=== PATIENT | female | born 1970 | race Two or more races ===

== ENCOUNTER 2021-11-08 10:37 | Outpatient (REF) | payer OTHER, SELFPAY ==
--- NOTE | ~2021-11-08 | XR_ITS ---
EXAMINATION: XR HAND, BILATERAL. XR LUMBAR SPINE. XR KNEE, BILATERAL. CLINICAL INFORMATION: Bilateral hand and knee pain. Low back pain. COMPARISON: None TECHNIQUE: 3 views of each hand. 3 views of the lumbar spine. 3 views of each knee. FINDINGS: Right hand: Mild to moderate osteoarthritis of the interphalangeal joints, most prominent at the 3rd DIP joint. No fracture. No periarticular osteopenia or erosions. Small degenerative calcification at the radial aspect of the 4th DIP joint. Carpal joint spaces are preserved. Left hand: Mild osteoarthritis of the interphalangeal joints, most prominent at the 2nd DIP joint. No fracture. No periarticular osteopenia, erosions, or suspicious soft tissue calcifications. Lumbar spine: Mild rotatory dextroconvex scoliosis. Normal lumbar lordosis. There is advanced facet arthrosis at L5-S1 with slight anterolisthesis. Mild multilevel degenerative disc disease with small endplate osteophytes. No acute abnormality. Right knee: No joint space narrowing. No fracture. No joint effusion. Left knee: No joint space narrowing. No fracture. No joint effusion. XR/XR lumbar spine 2-3V IMPRESSION: Mild to moderate degenerative changes in the distal distribution of the interphalangeal joints of both hands, most prominent involving the 3rd DIP joint of the right hand. No acute abnormalities or evidence of an inflammatory arthropathy. Mild multilevel degenerative disc disease of the lumbar spine with slight rotatory dextroconvex scoliosis. There is advanced facet arthrosis at L5-S1 with slight anterolisthesis. Normal knees.
--- NOTE | ~2021-11-08 | XR_ITS ---
EXAMINATION: XR HAND, BILATERAL. XR LUMBAR SPINE. XR KNEE, BILATERAL. CLINICAL INFORMATION: Bilateral hand and knee pain. Low back pain. COMPARISON: None TECHNIQUE: 3 views of each hand. 3 views of the lumbar spine. 3 views of each knee. FINDINGS: Right hand: Mild to moderate osteoarthritis of the interphalangeal joints, most prominent at the 3rd DIP joint. No fracture. No periarticular osteopenia or erosions. Small degenerative calcification at the radial aspect of the 4th DIP joint. Carpal joint spaces are preserved. Left hand: Mild osteoarthritis of the interphalangeal joints, most prominent at the 2nd DIP joint. No fracture. No periarticular osteopenia, erosions, or suspicious soft tissue calcifications. Lumbar spine: Mild rotatory dextroconvex scoliosis. Normal lumbar lordosis. There is advanced facet arthrosis at L5-S1 with slight anterolisthesis. Mild multilevel degenerative disc disease with small endplate osteophytes. No acute abnormality. Right knee: No joint space narrowing. No fracture. No joint effusion. Left knee: No joint space narrowing. No fracture. No joint effusion. XR/XR hand RT min 3V IMPRESSION: Mild to moderate degenerative changes in the distal distribution of the interphalangeal joints of both hands, most prominent involving the 3rd DIP joint of the right hand. No acute abnormalities or evidence of an inflammatory arthropathy. Mild multilevel degenerative disc disease of the lumbar spine with slight rotatory dextroconvex scoliosis. There is advanced facet arthrosis at L5-S1 with slight anterolisthesis. Normal knees.
--- NOTE | ~2021-11-08 | XR_ITS ---
EXAMINATION: XR HAND, BILATERAL. XR LUMBAR SPINE. XR KNEE, BILATERAL. CLINICAL INFORMATION: Bilateral hand and knee pain. Low back pain. COMPARISON: None TECHNIQUE: 3 views of each hand. 3 views of the lumbar spine. 3 views of each knee. FINDINGS: Right hand: Mild to moderate osteoarthritis of the interphalangeal joints, most prominent at the 3rd DIP joint. No fracture. No periarticular osteopenia or erosions. Small degenerative calcification at the radial aspect of the 4th DIP joint. Carpal joint spaces are preserved. Left hand: Mild osteoarthritis of the interphalangeal joints, most prominent at the 2nd DIP joint. No fracture. No periarticular osteopenia, erosions, or suspicious soft tissue calcifications. Lumbar spine: Mild rotatory dextroconvex scoliosis. Normal lumbar lordosis. There is advanced facet arthrosis at L5-S1 with slight anterolisthesis. Mild multilevel degenerative disc disease with small endplate osteophytes. No acute abnormality. Right knee: No joint space narrowing. No fracture. No joint effusion. Left knee: No joint space narrowing. No fracture. No joint effusion. XR/XR knee RT 3V IMPRESSION: Mild to moderate degenerative changes in the distal distribution of the interphalangeal joints of both hands, most prominent involving the 3rd DIP joint of the right hand. No acute abnormalities or evidence of an inflammatory arthropathy. Mild multilevel degenerative disc disease of the lumbar spine with slight rotatory dextroconvex scoliosis. There is advanced facet arthrosis at L5-S1 with slight anterolisthesis. Normal knees.
--- NOTE | ~2021-11-08 | XR_ITS ---
EXAMINATION: XR HAND, BILATERAL. XR LUMBAR SPINE. XR KNEE, BILATERAL. CLINICAL INFORMATION: Bilateral hand and knee pain. Low back pain. COMPARISON: None TECHNIQUE: 3 views of each hand. 3 views of the lumbar spine. 3 views of each knee. FINDINGS: Right hand: Mild to moderate osteoarthritis of the interphalangeal joints, most prominent at the 3rd DIP joint. No fracture. No periarticular osteopenia or erosions. Small degenerative calcification at the radial aspect of the 4th DIP joint. Carpal joint spaces are preserved. Left hand: Mild osteoarthritis of the interphalangeal joints, most prominent at the 2nd DIP joint. No fracture. No periarticular osteopenia, erosions, or suspicious soft tissue calcifications. Lumbar spine: Mild rotatory dextroconvex scoliosis. Normal lumbar lordosis. There is advanced facet arthrosis at L5-S1 with slight anterolisthesis. Mild multilevel degenerative disc disease with small endplate osteophytes. No acute abnormality. Right knee: No joint space narrowing. No fracture. No joint effusion. Left knee: No joint space narrowing. No fracture. No joint effusion. XR/XR hand LT min 3V IMPRESSION: Mild to moderate degenerative changes in the distal distribution of the interphalangeal joints of both hands, most prominent involving the 3rd DIP joint of the right hand. No acute abnormalities or evidence of an inflammatory arthropathy. Mild multilevel degenerative disc disease of the lumbar spine with slight rotatory dextroconvex scoliosis. There is advanced facet arthrosis at L5-S1 with slight anterolisthesis. Normal knees.
--- NOTE | ~2021-11-08 | XR_ITS ---
EXAMINATION: XR HAND, BILATERAL. XR LUMBAR SPINE. XR KNEE, BILATERAL. CLINICAL INFORMATION: Bilateral hand and knee pain. Low back pain. COMPARISON: None TECHNIQUE: 3 views of each hand. 3 views of the lumbar spine. 3 views of each knee. FINDINGS: Right hand: Mild to moderate osteoarthritis of the interphalangeal joints, most prominent at the 3rd DIP joint. No fracture. No periarticular osteopenia or erosions. Small degenerative calcification at the radial aspect of the 4th DIP joint. Carpal joint spaces are preserved. Left hand: Mild osteoarthritis of the interphalangeal joints, most prominent at the 2nd DIP joint. No fracture. No periarticular osteopenia, erosions, or suspicious soft tissue calcifications. Lumbar spine: Mild rotatory dextroconvex scoliosis. Normal lumbar lordosis. There is advanced facet arthrosis at L5-S1 with slight anterolisthesis. Mild multilevel degenerative disc disease with small endplate osteophytes. No acute abnormality. Right knee: No joint space narrowing. No fracture. No joint effusion. Left knee: No joint space narrowing. No fracture. No joint effusion. XR/XR knee LT 3V IMPRESSION: Mild to moderate degenerative changes in the distal distribution of the interphalangeal joints of both hands, most prominent involving the 3rd DIP joint of the right hand. No acute abnormalities or evidence of an inflammatory arthropathy. Mild multilevel degenerative disc disease of the lumbar spine with slight rotatory dextroconvex scoliosis. There is advanced facet arthrosis at L5-S1 with slight anterolisthesis. Normal knees.
[2021-11-08 10:53] LABS: MANUAL DIFF FLAG NO
[2021-11-08 12:02] LABS: Basophils Percent Auto 0.8 % (0-2); Eosinophils Absolute Auto 0.1 X10*3/uL (0.0-0.4); Eosinophils Percent Auto 1.5 % (0-4); Hematocrit 36.2 % (37.0-47.0); Hemoglobin 11.5 g/dl (12.0-16.0); Imm Gran Abs Auto 0.01 X10*3/uL (0.00-0.03); Imm Gran Pct Auto 0.2 % (0.0-0.4); Lymphocytes Absolute Auto 1.9 X10*3/uL (1.2-4.9); Lymphocytes Percent Auto 36.2 % (20-40); Mean Corpuscular HGB Conc 31.8 g/dl (31.0-35.0); Mean Corpuscular Hemoglobin 24.1 pg (27.0-33.0); Mean Corpuscular Volume 75.7 fL (80.0-98.0); Mean Platelet Volume 9.6 fL (9.4-12.3); Monocytes Absolute Auto 0.4 X10*3/uL (0.1-1.2); Monocytes Percent Auto 8.3 % (2-11); Neutrophils Absolute Auto 2.8 x10*3/uL (2.0-8.3); Platelet Count 448 X10*3/uL (160-400); Red Blood Count 4.78 X10*6/uL (4.20-5.50); Red Cell Distribution Width 14.4 % (11.0-16.0); White Blood Count 5.3 X10*3/uL (4.8-10.8)
[2021-11-08 12:42] LABS: Erythrocyte Sedimentation Rate 14 MM/HR (0-20)
[2021-11-08 12:53] LABS: Thyroid Stimulating Hormone 2.28 uIU/mL (0.32-4.0)
[2021-11-08 13:14] LABS: Alanine Aminotransferase 23 U/L (0-31); Albumin Level 4.7 g/dL (3.5-5.0); Alkaline Phosphatase 101 U/L (39-117); Anion Gap 15 (12-20); Aspartate Amino Transferase 24 U/L (5-31); Bilirubin Total 0.9 mg/dL (0.0-1.0); Blood Urea Nitrogen 11 mg/dL (9-16); C Reactive Protein 0.07 mg/dL (< or = 0.50); Calcium 9.5 mg/dL (8.4-10.2); Carbon Dioxide 26 mmol/L (22-29); Chloride 104 mmol/L (96-108); Estimated Glomerular Filt Rate > 60; Glucose Random 95 mg/dL (60-115); Potassium 4.6 mmol/L (3.3-5.1); Rheumatoid Factor < 15.0 IU/mL (<15.0); Sodium 140 mmol/L (135-145); Total Protein 7.7 g/dL (6.5-8.0)
[2021-11-08 14:54] LABS: Creatinine Urine 31.83 mg/dL; Total Protein Urine Random < 7 mg/dL (<12)
[2021-11-13 15:02] LABS: Anti Nuclear Antibody Screen NEGATIVE (NEGATIVE)
== END 2021-11-08 10:38 | disposition home or self-care (01) ==
LOC: HO.LAB 10:37
PROVIDERS: PCP Internal Medicine; Visit Provider Internal Medicine Rheumatology
DX: M79.642 Pain in left hand (principal); M79.641 Pain in right hand; M25.561 Pain in right knee; M25.562 Pain in left knee; M54.50 Low back pain, unspecified; M79.7 Fibromyalgia; M47.812 Spondylosis without myelopathy or radiculopathy, cervical region
CPT/HCPCS: 36415; 72100; 73130; 73562; 80053; 84156; 84443; 85025; 85652; 86038; 86039; 86140; 86431; 99202

== ENCOUNTER → 2021-12-18 10:51 | Outpatient (BNVA) | payer OTHER, SELFPAY | PROVIDERS: PCP Internal Medicine; Visit Provider Internal Medicine Rheumatology | DX: M47.816 Spondylosis without myelopathy or radiculopathy, lumbar region (principal); M19.041 Primary osteoarthritis, right hand; M19.042 Primary osteoarthritis, left hand | CPT/HCPCS: 99212 ==

== ENCOUNTER 2022-02-23 07:34 | Outpatient (REF) | payer OTHER, SELFPAY ==
[2022-02-23 07:51] LABS: MANUAL DIFF FLAG NO
[2022-02-23 08:10] LABS: Basophils Absolute Auto 0.1 X10*3/uL (0.0-0.2); Basophils Percent Auto 1.1 % (0-2); Eosinophils Absolute Auto 0.1 X10*3/uL (0.0-0.4); Eosinophils Percent Auto 2.3 % (0-4); Hemoglobin 11.1 g/dl (12.0-16.0); Imm Gran Abs Auto 0.01 X10*3/uL (0.00-0.03); Imm Gran Pct Auto 0.2 % (0.0-0.4); Lymphocytes Absolute Auto 1.9 X10*3/uL (1.2-4.9); Lymphocytes Percent Auto 40.8 % (20-40); Mean Corpuscular HGB Conc 30.8 g/dl (31.0-35.0); Mean Corpuscular Hemoglobin 23.8 pg (27.0-33.0); Mean Corpuscular Volume 77.3 fL (80.0-98.0); Mean Platelet Volume 9.3 fL (9.4-12.3); Monocytes Absolute Auto 0.4 X10*3/uL (0.1-1.2); Monocytes Percent Auto 8.3 % (2-11); Neutrophils Absolute Auto 2.2 x10*3/uL (2.0-8.3); Neutrophils Percent Auto 47.3 % (45-73); Platelet Count 413 X10*3/uL (160-400); Red Blood Count 4.66 X10*6/uL (4.20-5.50); Red Cell Distribution Width 13.7 % (11.0-16.0); White Blood Count 4.7 X10*3/uL (4.8-10.8)
[2022-02-23 08:49] LABS: Alanine Aminotransferase 26 U/L (0-31); Albumin Level 4.5 g/dL (3.5-5.0); Alkaline Phosphatase 95 U/L (39-117); Anion Gap 15 (12-20); Aspartate Amino Transferase 22 U/L (5-31); Bilirubin Total 0.7 mg/dL (0.0-1.0); Blood Urea Nitrogen 18 mg/dL (9-16); Calcium 9.8 mg/dL (8.4-10.2); Carbon Dioxide 26 mmol/L (22-29); Chloride 104 mmol/L (96-108); Cholesterol 244 mg/dL; Estimated Glomerular Filt Rate > 60; Glucose Fasting 94 mg/dL (60-99); HDL Cholesterol 71 mg/dL; Iron 56 mcg/dL (30-160); LDL Cholesterol Calculated 157 mg/dl; Percent Iron Saturation 15 % (15-50); Potassium 4.3 mmol/L (3.3-5.1); Sodium 141 mmol/L (135-145); Total Iron Binding Capacity 384 mcg/dL (228-428); Total Protein 7.2 g/dL (6.5-8.0); Triglycerides 83 mg/dL; Unsaturated Iron Binding 328 ug/dL
[2022-02-23 08:53] LABS: Erythrocyte Sedimentation Rate 5 MM/HR (0-20)
[2022-02-23 09:07] LABS: HBS Num1 2.07 mIU/mL (0-7.99); HBc Num1 0.08 S/CO (0.00-0.79); Hepatitis B Core Antibody Nonreactive (Nonreactive); Hepatitis B Surface Antigen Negative (Negative); ~Hepatitis B Surface Antibody NONREACTIVE (Nonreactive)
[2022-02-23 09:11] LABS: Thyroid Stimulating Hormone 3.21 uIU/mL (0.32-4.0); Vitamin D 25-OH Total 29.8 ng/mL (>30)
[2022-02-23 09:13] LABS: Folate 13.7 ng/mL (> or = 4.0); Vitamin B12 339 pg/mL (200-900)
[2022-02-26 06:02] LABS: TS Negative Control Passed; TS Panel A 0; TS Panel B 0; TS Positive Control Passed; TSpotTB Negative (Negative)
[2022-02-26 13:21] LABS: Anti Nuclear Antibody Screen NEGATIVE (NEGATIVE)
[2022-02-26 19:57] LABS: Thyroglobulin Antibodies <1 IU/mL (< or = 1); Thyroid Peroxidase Antibodies <1 IU/mL (<9)
[2022-02-26 22:13] LABS: Rubeola IgG (Measles) >300.00 AU/mL
[2022-02-26 22:51] LABS: CRP High Sensitivity 0.4 mg/L
[2022-02-27 13:37] LABS: Anti DNA DS Antibody 7 IU/mL
[2022-02-27 14:07] LABS: Cyclic Citrullinated Peptide <16 UNITS
[2022-02-28 21:51] LABS: Intrinsic Factor Antibodies Negative (Negative)
[2022-03-01 23:17] LABS: Parietal Cell Antibody <=20.0 Unit (<=20.0)
== END 2022-02-23 07:35 | disposition home or self-care (01) ==
LOC: HO.LAB 07:34
PROVIDERS: PCP Internal Medicine; Visit Provider Internal Medicine
DX: Z01.84 Encounter for antibody response examination (principal); M06.9 Rheumatoid arthritis, unspecified; E03.9 Hypothyroidism, unspecified; E78.5 Hyperlipidemia, unspecified; E53.8 Deficiency of other specified B group vitamins; E55.9 Vitamin D deficiency, unspecified; D64.9 Anemia, unspecified; R73.02 Impaired glucose tolerance (oral); Z11.1 Encounter for screening for respiratory tuberculosis
CPT/HCPCS: 36415; 80053; 80061; 82306; 82607; 82746; 83516; 83540; 84443; 85025; 85652; 86038; 86039; 86141; 86200; 86225; 86340; 86376; 86481; 86704; 86706; 86735; 86762; 86765; 86787; 86800; 87340

== ENCOUNTER 2022-03-29 08:20 | Outpatient (REF) | payer OTHER, SELFPAY ==
--- NOTE | ~2022-03-29 | MM_ITS ---
EXAMINATION: MM SCREENING DIGITAL BREAST TOMOSYNTHESIS, BILATERAL CLINICAL INFORMATION: Screening. Asymptomatic. Status post bilateral reduction mammoplasty. The lifetime risk of breast cancer based on the Tyrer-Cuzick Model is 6.2%. COMPARISON: Mammography: None TECHNIQUE: Digital breast tomosynthesis is performed in both the craniocaudal and mediolateral oblique views along with computer-aided detection (CAD). Synthesized 2D images are generated from the tomosynthesis. FINDINGS: There are scattered areas of fibroglandular density (ACR BI-RADS breast composition Category b). There are no significant masses, abnormal calcifications, or other abnormalities. MM/MM tomosynthesis screening BI IMPRESSION: No mammographic evidence of malignancy. ASSESSMENT: BI-RADS 1: Negative RECOMMENDATION: Routine annual mammography screening. This patient's information was entered into a reminder system with a target due date for their next mammogram.
== END 2022-03-29 08:21 | disposition home or self-care (01) ==
LOC: HO.MAMMO 08:20
PROVIDERS: PCP Internal Medicine; Visit Provider Internal Medicine
DX: Z12.31 Encounter for screening mammogram for malignant neoplasm of breast (principal)
CPT/HCPCS: 77063; 77067

== ENCOUNTER → 2022-04-12 09:26 | Outpatient (BNVA) | payer OTHER, SELFPAY | PROVIDERS: PCP Internal Medicine; Visit Provider Nurse Practitioner | DX: Z01.818 Encounter for other preprocedural examination (principal); D12.6 Benign neoplasm of colon, unspecified; Z80.0 Family history of malignant neoplasm of digestive organs | CPT/HCPCS: 99202 ==

== ENCOUNTER 2022-05-10 08:04 | Outpatient (REF) | payer OTHER, SELFPAY ==
[2022-05-12 03:18] LABS: HPV mRNA E6/E7 rflx Not Detected (Not Detected)
== END 2022-05-10 08:05 | disposition home or self-care (01) ==
LOC: HO.LNP 08:04
PROVIDERS: PCP Internal Medicine; Visit Provider Obstetrics & Gynecology
DX: Z01.419 Encounter for gynecological examination (general) (routine) without abnormal findings (principal); Z11.51 Encounter for screening for human papillomavirus (HPV)
CPT/HCPCS: 87624; 88142

== ENCOUNTER 2022-08-31 08:09 | Day surgery (SDC) | payer OTHER, SELFPAY ==
[2022-08-29 15:01] VITALS: BMI 25.4
--- NOTE | 2022-08-30 12:21 | P.CONAN_ITS ---
Documented by User: Sheri Weems NP 08/30/22 12:22 HPI - Anesthesia Eval Consult details Narrative: 52yo F for Colonoscopy PMFSH Active Problems Active Problems: All Active Problems (Updated 08/29/22 @ 14:52 by Sara Mahan RN) Rheumatoid arthritis (Acute) Fibromyalgia (Acute) Impaired glucose tolerance (Acute) Iron deficiency anemia (Acute) Pure hypercholesterolemia (Acute) Hypothyroidism (Acute) B12 deficiency (Acute) Immunization due (Acute) Knee pain, bilateral (Acute) Cervical osteoarthritis (Acute) Osteoarthritis of hands, bilateral (Acute) Osteoarthritis of lumbar spine (Acute) Physical exam (Acute) Microcytic hypochromic anemia (Acute) Pre-op examination (Acute) Tubular adenoma of colon (Acute) Family history of colon cancer in father (Acute) Well woman exam (Acute) Past Medical History Medical History (Updated 08/29/22 @ 14:52 by Sara Mahan RN) Elevated cholesterol Fibromyalgia Hypothyroid Iron deficiency anemia Osteoarthritis Family History Family History Father Diabetes Anemia Mother CAD (coronary artery disease) Hypercholesteremia Mental health disorder Paranoid schizophrenia Paternal Grandfather Colon cancer Paternal Uncle Prostate cancer Surgical History Surgical History H/O tubal ligation History of History of reduction mammoplasty Social History Social History Household Members: Children Housing: House Are you a primary director of healthcare systems to a significant other at home: No Do you presently have visiting nurse or other home services: No Alcohol intake: current Alcohol intake frequency: a few times a month Alcohol type: beer and wine Patient Tobacco Use Status: Never used Tobacco e-Cigarette/Vaping Use: Never Used Second Hand Smoke Exposure: No Are you DNR?: No Advance Directives: No Advance Directives Information Provided: Yes service: No Current occupational status: employed 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 Sexual orientation: Straight/Heterosexual Gender identity: Female Cognitive needs: No Hearing needs: No Vision needs: Yes Meds Allergies Allergy/AdvReac Type Severity Reaction Status Date / Time No Known Allergies Allergy Verified 06/13/22 09:04 Exam Exam Date and Time: August 30, 2022 1221 Height,Weight and Vital Signs: Height 5 ft 2 in Weight 63.049 kg Assessment and Plan Assessment Anesthesia Assessment: Chart Reviewed Documented by User: Josee Pierce MD 08/31/22 09:22 [facility] Past Medical History Medical History (Updated 08/29/22 @ 14:52 by Sara Mahan RN) Elevated cholesterol Fibromyalgia Hypothyroid Iron deficiency anemia Osteoarthritis Family History Family History Father Diabetes Anemia Mother CAD (coronary artery disease) Hypercholesteremia Mental health disorder Paranoid schizophrenia Paternal Grandfather Colon cancer Paternal Uncle Prostate cancer Family history of problems with anesthesia: No Surgical History Surgical History H/O tubal ligation History of History of reduction mammoplasty History of Problems with Anesthesia: No Social History Social History Household Members: Children Housing: House Are you a primary director of healthcare systems to a significant other at home: No Do you presently have visiting nurse or other home services: No Alcohol intake: current Alcohol intake frequency: a few times a month Alcohol type: beer and wine Patient Tobacco Use Status: Never used Tobacco e-Cigarette/Vaping Use: Never Used Second Hand Smoke Exposure: No Are you DNR?: No Advance Directives: No Advance Directives Information Provided: Yes service: No Current occupational status: employed 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 Sexual orientation: Straight/Heterosexual Gender identity: Female Cognitive needs: No Hearing needs: No Vision needs: Yes Meds Allergies Allergy/AdvReac Type Severity Reaction Status Date / Time No Known Allergies Allergy Verified 06/13/22 09:04 Exam Airway Mallampati Class: II TM Dist: >3cm Neck ROM: Full Heart: rrr Lungs: cta Assessment and Plan Assessment Anesthesia Assessment: Anesthesia Plan Discussed Final Anesthetic Review Family History of Problems with Anesthesia: No History of Problems with Anesthesia: No NPO: Yes ASA Class: II Final Preanesthetic Review: No Changes in Pt Med Stat, Meds/Allgs Chart Reviewed and Consent Obtained/Reviewed Patient Risk: Intermediate Procedure Risk: Intermediate Anesthetic Plan Anesthetic Plan: MAC: Disposition: Standard PACU
[2022-08-31 08:59] VITALS: BP 114/81; PULSE 71; RESP 16; TEMP 36.3; O2SAT 100
[2022-08-31 09:04] VITALS: BMI 25.4
--- NOTE | 2022-08-31 09:13 | MHC.SHP ---
Pre-Procedural Eval Section A Date of Service: 08/31/22 The patient is an INPATIENT: No The History & Physical has been completed within 30 days and I have reviewed it.: No Section B Chief Complaint: Screening , hx of polyps Relevant Family History (Specify if Yes): No Relevant Social History: None Present Medications: see Short Stay Collaborative assessment Medical History: Significant History (Hypothyroid History B12 deficiency High cholesterol Anemia Osteoarthritis of the lumbar and cervical spine hands Fibromyalgia syndrome Impaired glucose tolerance Rheumatoid arthritis) History of Previous Operations: Relevant previous surgery/procedure and date(s) (H/O tubal ligation History of History of reduction mammoplasty) Allergies: Allergies Allergy/AdvReac Type Severity Reaction Status Date / Time No Known Allergies Allergy Verified 06/13/22 09:04 Review of Systems Sugical H&P ROS: Negative: Constitution, Cardiovascular, Respiratory and Gastrointestinal Exam Surgical H&P Exam: Normal: Heart, Normal: Lungs, Normal: Extremities and Normal: Abdomen Plan Diagnosis/Plan: Unchanged I have reviewed the history and physical and performed a pertinent physical examination on my patient. No changes have occurred unless specified. Time Spent With Patient Time: Total time managing care of this patient today ____ minutes.
[2022-08-31] MEDS: Lactated Ringers 1,000 ML 100 ML IVCONT (09:28)
--- NOTE | 2022-08-31 10:11 | P.OP_ITS ---
Operative Note Operative Note Date of Service: 08/31/22 Narrative: COLONOSCOPY TILL CECUM Pre-op diagnosis: Colon cancer screening, history of colon polyps Post-op diagnosis:? Diverticulosis Endoscopist:? Emelina No MD Anesthesia:?MAC Consent: Indications for the procedure and potential complications of bleeding, perforation, reaction to medications and missed diagnosis were discussed with the patient and informed consent was obtained. Instrument: Olympus PCF H 190 L variable stiffness pediatric colonoscope Monitoring: Vital signs and clinical assessment, intermittent blood pressure monitoring, continuous EKG monitoring, Pulse oximetry and Carbon Dioxide monitoring were done throughout the procedure. Please see anesthesia flowsheet. Colon withdrawl time was 19 minutes. Procedure: The patient was placed in the left lateral decubitis position and pre-procedure medications were administered. After a digital rectal examination of the ano-rectum, the video colonoscope was inserted into the rectum and advanced through the colon to the cecum. The colonoscope was slowly withdrawn in a retrograde panoramic fashion and the colon mucosa was carefully examined including a retroflexed view of the rectum. Findings and interventions are described below. Procedure Difficulty: Without difficulty Findings: Terminal Ileum: Not evaluated Cecum: Normal Ascending Colon: Normal Transverse Colon: Normal Descending Colon: Normal Sigmoid Colon: Moderate diverticulosis Rectum: Normal Ano-rectum: Normal Colon preparation: Good after some irrigation Impression and Post Procedure Diagnosis: Colonoscopy Findings: No polyps were detected. Moderate diverticulosis seen in the sigmoid colon Plan: Patient has an appointment on 09/12/22 in the GI Clinic with Genoveva Aleman FNP- BC. Repeat Colonoscopy in 5 years due to a history of colon polyps. Diverticulosis handout was given in the discharge area
[2022-08-31 10:45] VITALS: BP 121/61; PULSE 63; RESP 16; TEMP 36.7; O2SAT 98
[2022-08-31 11:00] VITALS: BP 112/75; PULSE 66; RESP 18; TEMP 36.3; O2SAT 100
== END 2022-08-31 11:15 | disposition home or self-care (01) ==
PROVIDERS: PCP Internal Medicine; Visit Provider Internal Medicine Gastroenterology
PROC: 0DJD8ZZ Inspection of Lower Intestinal Tract, Via Natural or Artificial Opening Endoscopic (ICD-10-PCS; CPT 45378; principal; 2022-08-31 10:10)
DX: Z12.11 Encounter for screening for malignant neoplasm of colon (principal); K57.30 Diverticulosis of large intestine without perforation or abscess without bleeding; Z86.010 Personal history of colon polyps; Z80.0 Family history of malignant neoplasm of digestive organs
CPT/HCPCS: 45378

== ENCOUNTER → 2022-09-12 08:48 | Outpatient (BNVA) | payer OTHER, SELFPAY | PROVIDERS: PCP Internal Medicine; Visit Provider Nurse Practitioner | DX: Z86.010 Personal history of colon polyps (principal); Z80.0 Family history of malignant neoplasm of digestive organs | CPT/HCPCS: 99212 ==

== ENCOUNTER 2022-09-18 08:48 | Outpatient (REF) | payer OTHER, SELFPAY ==
[2022-09-18 09:00] LABS: MANUAL DIFF FLAG NO
[2022-09-18 09:59] LABS: Basophils Absolute Auto 0.1 X10*3/uL (0.0-0.2); Eosinophils Absolute Auto 0.1 X10*3/uL (0.0-0.4); Eosinophils Percent Auto 2.5 % (0-4); Hematocrit 37.6 % (37.0-47.0); Hemoglobin 11.5 g/dl (12.0-16.0); Imm Gran Abs Auto 0.02 X10*3/uL (0.00-0.03); Imm Gran Pct Auto 0.4 % (0.0-0.4); Lymphocytes Absolute Auto 2.2 X10*3/uL (1.2-4.9); Mean Corpuscular HGB Conc 30.6 g/dl (31.0-35.0); Mean Corpuscular Hemoglobin 23.9 pg (27.0-33.0); Mean Platelet Volume 9.7 fL (9.4-12.3); Monocytes Absolute Auto 0.5 X10*3/uL (0.1-1.2); Monocytes Percent Auto 9.9 % (2-11); Neutrophils Absolute Auto 2.3 x10*3/uL (2.0-8.3); Neutrophils Percent Auto 44.2 % (45-73); Platelet Count 462 X10*3/uL (160-400); Red Blood Count 4.82 X10*6/uL (4.20-5.50); Red Cell Distribution Width 13.9 % (11.0-16.0); White Blood Count 5.2 X10*3/uL (4.8-10.8)
[2022-09-18 10:45] LABS: Alanine Aminotransferase 23 U/L (0-31); Albumin Level 4.4 g/dL (3.5-5.0); Alkaline Phosphatase 84 U/L (39-117); Aspartate Amino Transferase 19 U/L (5-31); Bilirubin Direct 0.2 mg/dL (0.0-0.5); Iron 95 mcg/dL (30-160); Percent Iron Saturation 27 % (15-50); Total Iron Binding Capacity 358 mcg/dL (228-428); Total Protein 7.2 g/dL (6.5-8.0); Unsaturated Iron Binding 263 ug/dL
[2022-09-18 11:16] LABS: Folate 15.7 ng/mL (> or = 4.0); Free T4 (Free Thyroxine) 0.89 ng/dL (0.71-1.85); Thyroid Stimulating Hormone 2.08 uIU/mL (0.32-4.0); Vitamin B12 399 pg/mL (200-900); Vitamin D 25-OH Total 34.2 ng/mL (>30)
[2022-09-19 16:44] LABS: Calcium (PTHI) 9.7 mg/dL (8.6-10.4); PTHI 52 pg/mL (16-77)
[2022-09-21 14:18] LABS: Calcium, Ionized 5.1 mg/dL (4.7-5.5)
== END 2022-09-18 08:49 | disposition home or self-care (01) ==
LOC: HO.LAB 08:48
PROVIDERS: PCP Internal Medicine; Visit Provider Internal Medicine
DX: D64.9 Anemia, unspecified (principal); E55.9 Vitamin D deficiency, unspecified; E53.8 Deficiency of other specified B group vitamins; E03.9 Hypothyroidism, unspecified; M25.561 Pain in right knee; M25.562 Pain in left knee
CPT/HCPCS: 36415; 80076; 82306; 82330; 82607; 82746; 83540; 83970; 84439; 84443; 85025

== ENCOUNTER 2022-10-30 16:28 | Outpatient (AMB) | payer OTHER, SELFPAY ==
--- NOTE | 2022-10-30 16:32 | MHC.PC.OV ---
Vital Signs 10/30/22 16:38 Height 5 ft 2 in Weight 140 lb BMI 25.6 BP 110/80 Blood Pressure Location Lt brachial Position Sitting Intake Visit Reasons: Follow Up Intake Note: Patient here for a follow up Control Panel Operator Required: No Accompanied by: Self / Same As Patient Allergies No Known Allergies Allergy (Verified 10/30/22 16:46) Medication List - Last Reconciled 10/30/22 by Hope Goodwin MD ferrous sulfate 325 mg PO DAILY 90 days Tobacco use date assessed: 06/13/22 Dental Screening Dental Screen Date: 10/30/22 Did you have a dental visit in the last 12 months?: Yes Did you have a dental problem in the last 6 months where you did not have access to dental care?: No Was dental information given to patient?: Patient has dentist HPI HPI Comments History of Present Illness Details This is a 52-year-old female with iron-deficiency anemia that comes for follow-up on recent labs. Has hemoglobin of 11.5 and compliant with ferrous sulfate. Follows with Hematology-Oncology. Last mammogram was March 2022 and was normal. Last Pap smear was April 2022 and was normal with HPV negative. Last colonoscopy was August 2022 and was normal. Denies any chest pain or shortness of breath. Complains of diffuse joint pain and was diagnosed with rheumatoid arthritis in [place] but was evaluated by Rheumatology at [facility] which rule it out. Had hypercalcemia that was repeated and was normal. [facility] Medical History Elevated cholesterol Fibromyalgia Hypothyroid Iron deficiency anemia Osteoarthritis Surgical History H/O colonoscopy H/O tubal ligation History of History of reduction mammoplasty Family History Father Diabetes Anemia Mother CAD (coronary artery disease) Hypercholesteremia Mental health disorder Paranoid schizophrenia Paternal Grandfather Colon cancer Paternal Uncle Prostate cancer Social History Household Members: Children Housing: House Are you a primary transitional care manager to a significant other at home: No Do you presently have visiting nurse or other home services: No Alcohol intake: current Alcohol intake frequency: a few times a month Alcohol type: beer and wine Patient Tobacco Use Status: Never used Tobacco e-Cigarette/Vaping Use: Never Used Second Hand Smoke Exposure: No service: No Current occupational status: unemployed 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 Wade Rodriguez, Nicole Poon, Og Soares and colleagues, with an educational maura from [employer]. Review of Systems Const All systems reviewed & are unremarkable except as noted in HPI and below Eyes Reports no additional complaints, Denies change in vision and Denies other visual disturbances Card Denies chest pain at rest, Denies chest pain with activity, Denies edema, Denies irregular heart rhythm, Denies claudication, Denies dyspnea, Denies dyspnea on exertion, Denies orthopnea, Denies paroxysmal nocturnal dyspnea and Denies slow heart rate Resp Denies cough, Denies dyspnea and Denies dyspnea on exertion GI Denies abdominal pain, Denies change in bowel habits, Denies excessive flatus, Denies nausea and Denies vomiting Denies urinary incontinence, Denies urinary hesitancy and Denies urinary urgency Musc Denies abnormal gait, Denies atrophy, Denies deformity and Denies limited range of motion Skin/Breast Denies bleeding lesions, Denies changing lesions and Denies rash Neuro Denies abnormal gait and Denies lack of coordination Physical exam (Primary Care) Vital Signs: Last Vital Signs BP 110/80 10/30/22 16:38 BMI result Body Mass Index 25.6 Tobacco/Smoking Status: Tobacco use Status Tobacco use date assessed 06/13/22 10/30/22 16:43 Patient Tobacco Use Status Never used Tobacco 10/30/22 16:43 e-Cigarette/Vaping Use Never Used 10/30/22 16:43 Thrive Assessment: Date of Thrive Assessment Date Thrive assessed 06/13/22 10/30/22 16:43 Eyes General: appearance normal, both eyes and all related structures Eyelids: Yes eyelids normal Conjunctivae: conjunctivae normal Neck Neck: Yes normal visual inspection and Yes supple Resp Effort & Inspection: normal respiratory effort Auscultation: clear to auscultation bilaterally Cardio Jugular venous distension: no JVD Rate: regular rate Rhythm: regular rhythm Heart sounds: S1 normal heart sound present and S2 normal heart sound present Extrem General: Yes full ROM Assessment and Plan Assessment & Plan (1) Iron deficiency anemia: Code(s): D50.9 - Iron deficiency anemia, unspecified Plan: Continue ferrous sulfate Medications: New olopatadine 0.1% separate doses by at least 6-8 hours 1 drp ophthalmic (eye) BID 5 mL 1RF 30 days Coding Level of Care Code Est Pt Level 3 (94394) Diagnoses Iron deficiency anemia D50.9 Time Spent (min) 17
[2022-10-30 16:38] VITALS: BP 110/80; BMI 25.6
== END 2022-10-30 16:56 | disposition home or self-care (01) ==
PROVIDERS: Visit Provider Internal Medicine
DX: D50.9 Iron deficiency anemia, unspecified (principal)
CPT/HCPCS: 99213